=== PATIENT | female | born 1995 | race Hispanic/Latino ===

== ENCOUNTER 2024-01-15 16:20 | Outpatient (CLI) | payer OTHER, SELFPAY ==
[2024-01-15 17:21] LABS: Beta HCG Quantitative < 2.39 mIU/ML
[2024-01-16 05:23] LABS: Progesterone <0.5 ng/mL
== END 2024-01-15 16:21 | disposition home or self-care (01) ==
LOC: ANHLAB 16:26
PROVIDERS: PCP Nurse Practitioner Family; Visit Provider Obstetrics & Gynecology
DX: Z32.00 Encounter for pregnancy test, result unknown (principal)
CPT/HCPCS: 36415; 84144; 84702